=== PATIENT | male | born 1990 | race Caucasian/White ===

== ENCOUNTER 2022-08-23 11:23 | Emergency (ER) | payer OTHER ==
--- NOTE | 2022-08-23 12:47 | RAD REPORT ---
EXAM DESCRIPTION: US - Extremity Venous Uni Ltd - 08/23/2022 12:26 pm CLINICAL HISTORY: Swelling COMPARISON: None. TECHNIQUE: Real-time sonographic evaluation of the right lower extremity deep venous system was perf ormed. FINDINGS: Normal compressibility, flow augmentation, phasic flow and spontaneous flow is identified in the right lower extremity deep venous system. No intraluminal filling defects seen. IMPRESSION: No DVT in the right lower extremity.
[2022-08-23] MEDS ORDERED: HYDROCODONE/APAP 5/325 MG TAB ONE (13:44)
--- NOTE | 2022-08-23 14:12 | RAD REPORT ---
EXAM DESCRIPTION: CT - Chest For Pe Angio - 08/23/2022 2:00 pm CLINICAL HISTORY: edema, sob COMPARISON: No comparisons TECHNIQUE: Dynamically enhanced axial 3 mm thick images of the chest were obtained during administra tion of <100> mL Isovue 370 IV contrast. Coronal and oblique reconstruction images were generated and reviewed. Exam utilizes a protocol for optimal evaluation of pulmonary arterial tree. Maximum intensity projections 3D imaging was utilized All CT scans are performed using dose optimization technique as appropriate and may include automated exposure control or mA/KV adjustment according to patient size. FINDINGS: Chest Wall: No suspicious thyroid nodules or pathologic lymphadenopathy. Lungs: No acute abnormality. Pleura: No significant effusions or pneumothorax. Mediastinum/daina: No pathologic lymphadenopathy. Pulmonary arteries/Aorta: No filling defect identified. No aortic aneurysm. Heart: No significant pericardial effusion. Normal heart size. Upper abdomen: No acute abnormality.Hepatic steatosis. Bones: No acute abnormality. IMPRESSION: Negative for pulmonary embolism. No acute findings within the chest.
--- NOTE | 2022-08-23 14:15 | RAD REPORT ---
EXAM DESCRIPTION: CTAbdomen Pelvis W Contrast - 08/23/2022 2:00 pm CLINICAL HISTORY: r/o mass as cause of venous obstruction COMPARISON: No comparisons TECHNIQUE: CT of the abdomen and pelvis was performed. All CT scans are performed using dose optimization technique as appropriate and may include automated exposure control or mA/KV adjustment according to patient size. FINDINGS: Lower chest: No acute abnormality. Liver: No acute abnormality or suspicious lesions. Hepatic steatosis . Biliary: No biliary ductal dilatation. Stomach: No significant focal abnormality. Duodenum: No significant focal abnormality. Pancreas: No significant abnormality. Spleen: No significant abnormality. Adrenal: No suspicious lesions. Kidney/ureter: No hydronephrosis. No renal calculi. Retroperitoneum: No retroperitoneal adenopathy. Vascular: No aneurysm. Bowel: No significant focal abnormality. Normal appendix. Peritoneum: No ascites or free air. Bladder: Grossly unremarkable. Reproductive: No adnexal masses. Bones: No acute fracture. Moderate disc height loss at L5-S1. Other: n/a IMPRESSION: No acute intra-abdominal or pelvic finding. Hepatic steatosis.
[2022-08-23] MEDS ORDERED: KETOROLAC 30 MG/ML INJ ONE (14:34)
--- NOTE | 2022-08-23 14:39 | EDPHYS ---
Physician Documentation [facility] Name: Lico Antonio II Age: 32 yrs Sex: Male : 1990 Arrival Date: 08/23/2022 Time: 11:25 Bed 20 Private MD: ED Physician Fidel Palomino HPI: 08/23 12:06 This 32 yrs old Male presents to ER via Ambulatory with complaints of Leg Pain, Leg snw Swelling. 12:06 The patient presents with pain, that is acute, swelling. The complaints affect the snw right knee, right cruz, anterior aspect of right ankle and dorsum of right foot. Onset: The symptoms/episode began/occurred acutely. Associated signs and symptoms: Pertinent positives: swelling. The patient has not recently seen a physician. rec'd covid vaccines. Historical: - Allergies: 11:45 No Known Allergies; ss - Home Meds: 11:45 None [Active]; ss - PMHx: 11:45 None; ss - PSHx: 11:45 dental repair; ss - Immunization history:: Client reports receiving the 2nd dose of the Covid vaccine. - Social history:: Smoking status: Patient reports the use of cigarette tobacco products, denies chronic smoking, but will smoke occasionally. ROS: 12:05 Constitutional: Negative for fever, chills, and weight loss, Eyes: Negative for injury, snw pain, redness, and discharge, ENT: Negative for injury, pain, and discharge, Neck: Negative for injury, pain, and swelling, Cardiovascular: Negative for chest pain, palpitations, and edema, Respiratory: Negative for shortness of breath, cough, wheezing, and pleuritic chest pain, Abdomen/GI: Negative for abdominal pain, nausea, vomiting, diarrhea, and constipation, Back: Negative for injury and pain, : Negative for injury, bleeding, discharge, and swelling, Skin: Negative for injury, rash, and discoloration, Neuro: Negative for headache, weakness, numbness, tingling, and seizure, Psych: Negative for depression, anxiety, suicide ideation, homicidal ideation, and hallucinations. 12:05 MS/extremity: Positive for pain, swelling, of the right knee, right cruz, anterior aspect of right ankle and dorsum of right foot. Exam: 12:01 Constitutional: This is a well developed, well nourished patient who is awake, alert, snw and in no acute distress. Head/Face: Normocephalic, atraumatic. Eyes: Pupils equal round and reactive to light, extra-ocular motions intact. Lids and lashes normal. Conjunctiva and sclera are non-icteric and not injected. Cornea within normal limits. Periorbital areas with no swelling, redness, or edema. ENT: Nares patent. No nasal discharge, no septal abnormalities noted. Tympanic membranes are normal and external auditory canals are clear. Oropharynx with no redness, swelling, or masses, exudates, or evidence of obstruction, uvula midline. Mucous membranes moist. Neck: Trachea midline, no thyromegaly or masses palpated, and no cervical lymphadenopathy. Supple, full range of motion without nuchal rigidity, or vertebral point tenderness. No Meningismus. Chest/axilla: Normal chest wall appearance and motion. Nontender with no deformity. No lesions are appreciated. Cardiovascular: Regular rate and rhythm with a normal S1 and S2. No gallops, murmurs, or rubs. Normal PMI, no JVD. No pulse deficits. Respiratory: Lungs have equal breath sounds bilaterally, clear to auscultation and percussion. No rales, rhonchi or wheezes noted. No increased work of breathing, no retractions or nasal flaring. Abdomen/GI: Soft, non-tender, with normal bowel sounds. No distension or tympany. No guarding or rebound. No evidence of tenderness throughout. Back: No spinal tenderness. No costovertebral tenderness. Full range of motion. Skin: Warm, dry with normal turgor. Normal color with no rashes, no lesions, and no evidence of cellulitis. Neuro: Awake and alert, GCS 15, oriented to person, place, time, and situation. Cranial nerves II-XII grossly intact. Motor strength 5/5 in all extremities. Sensory grossly intact. Cerebellar exam normal. Normal gait. Psych: Awake, alert, with orientation to person, place and time. Behavior, mood, and affect are within normal limits. 12:01 Musculoskeletal/extremity: Extremities: grossly normal except: noted in the right knee, right cruz, anterior aspect of right ankle and dorsum of right foot: swelling, tenderness, venous cord, ROM: no acute changes, Circulation is intact in all extremities. increased pain over the past two days DVT Exam: swelling, tenderness, positive Homans' sign noted on exam. Vital Signs: 11:41 Pulse 85; Resp 14; Temp 98.1(TE); Pulse Ox 99% on R/A; Weight 104.33 kg; Height 5 ft. 8 ss in. (172.72 cm); Pain 8/10; 11:45 BP 145 / 95; ss 12:31 BP 149 / 89; Pulse 78; Resp 20; Pulse Ox 96% on R/A; Pain 8/10; mb9 14:17 BP 119 / 87; Pulse 84; Resp 18; Pulse Ox 98% on R/A; Pain 4/10; mb9 14:41 BP 127 / 90; Pulse 84; Resp 16; Pulse Ox 97% ; mb9 11:41 Body Mass Index 34.97 (104.33 kg, 172.72 cm) ss MDM: 11:51 Patient medically screened. snw 14:41 Differential diagnosis: DVT, gout, obstructive lymph. Data reviewed: vital signs, snw nurses notes. Management of patient was discussed with the following: Dr. Palomino, family, pt and family voice understanding of tx plan and f/u. I considered the following discharge prescriptions or medication management in the emergency department Medications were administered in the Emergency Department. See MAR. Counseling: I had a detailed discussion with the patient and/or guardian regarding: the historical points, exam findings, and any diagnostic results supporting the discharge/admit diagnosis, the presence of at least one elevated blood pressure reading (>120/80) during this emergency department visit, radiology results, the need for outpatient follow up, for definitive care, to return to the emergency department if symptoms worsen or persist or if there are any questions or concerns that arise at home. Special discussion: I have referred the patient to see his PCP for further evaluation of high blood pressure. Based on the history and exam findings, there is no indication for further emergent testing or inpatient evaluation. I discussed with the patient/guardian the need to see the primary care provider for further evaluation of the symptoms. 08/23 11:50 Order name: US Extremity Venous Unilateral Ltd; Complete Time: 12:49 snw 08/23 12:31 Order name: CT Chest For PE Angio; Complete Time: 14:19 snw 08/23 12:31 Order name: CT Abd/Pelvis - IV Contrast Only; Complete Time: 14:19 snw 08/23 12:34 Order name: IV Saline Lock; Complete Time: 12:47 mb9 Administered Medications: 13:41 Drug: [place] (HYDROcodone-acetaminophen) 5 mg-325 mg 1 tabs Route: PO; mb9 14:41 Follow up: Response: No adverse reaction mb9 14:41 Drug: Ketorolac 30 mg Route: IM; Site: right deltoid; mb9 14:41 Follow up: Response: No adverse reaction mb9 Disposition Summary: 08/23/22 14:38 Discharge Ordered Location: Home snw Condition: Stable snw Diagnosis - Varicose veins of right lower extremities with pain snw Followup: snw - With: Emergency Department - When: As needed - Reason: Worsening of condition Followup: snw - With: Private Physician - When: 1 week - Reason: Recheck today's complaints, Continuance of care, Re-evaluation by your physician Discharge Instructions: - Discharge Summary Sheet snw - Varicose Veins snw - Stasis Dermatitis snw - DASH Eating Plan snw - Rehydration, Adult snw - How to Use Compression Stockings snw Forms: - Medication Reconciliation Form snw - Thank You Letter snw - Antibiotic Education snw - Prescription Opioid Use snw - Work release form snw Signatures: Dispatcher [employer] EDCyndi Page, TIRE SHOP MANAGER-C TIRE SHOP MANAGER-Csnw Corina Mccall, RN Meghan Arzola RN RN mb9 Corrections: (The following items were deleted from the chart) 11:45 11:45 PSHx: None; [facility]
--- NOTE | 2022-08-23 14:39 | ER ---
Nurse's Notes [facility] Name: Lico Antonio II Age: 32 yrs Sex: Male : 1990 Arrival Date: 08/23/2022 Time: 11:25 Bed 20 Private MD: Diagnosis: Varicose veins of right lower extremities with pain Presentation: 08/23 11:42 Chief complaint: Patient states: R lower leg pain and swelling that began 2-3 weeks ss ago. PT reports that swelling seems to go down when he lays down. Coronavirus screen: Client denies travel out of the [place] in the last 14 days. Ebola Screen: Patient denies exposure to infectious person. Patient denies travel to an Ebola-affected area in the 21 days before illness onset. Initial Sepsis Screen: Does the patient meet any 2 criteria? No. Patient's initial sepsis screen is negative. Does the patient have a suspected source of infection? No. Patient's initial sepsis screen is negative. Risk Assessment: Do you want to hurt yourself or someone else? Patient reports no desire to harm self or others. Onset of symptoms was July 2022. 11:42 Method Of Arrival: Ambulatory ss 11:42 Acuity: KRISTOPHER 3 ss Historical: - Allergies: 11:45 No Known Allergies; ss - Home Meds: 11:45 None [Active]; ss - PMHx: 11:45 None; ss - PSHx: 11:45 dental repair; ss - Immunization history:: Client reports receiving the 2nd dose of the Covid vaccine. - Social history:: Smoking status: Patient reports the use of cigarette tobacco products, denies chronic smoking, but will smoke occasionally. Screenin:34 [facility] ED Fall Risk Assessment (Adult) History of falling in the last 3 months, mb9 including since admission No falls in past 3 months (0 pts) Confusion or Disorientation No (0 pts) Intoxicated or Sedated No (0 pts) Impaired Gait No (0 pts) Mobility Assist Device Used No (0 pt) Altered Elimination No (0 pt) Score/Fall Risk Level 0 - 2 = Low Risk Oriented to surroundings, Maintained a safe environment, Educated pt \\T\\ family on fall prevention, incl call for assistance when getting out of bed. Abuse screen: Denies threats or abuse. Nutritional screening: No deficits noted. Tuberculosis screening: No symptoms or risk factors identified. Assessment: 12:31 General: Appears in no apparent distress. comfortable, Behavior is calm, cooperative, mb9 appropriate for age. Pain: Complains of pain in right leg Pain currently is 8 out of 10 on a pain scale. Quality of pain is described as aching, dull, Pain began 2 weeks ago Is intermittent, Aggravated by increased activity, weight bearing. Neuro: Farris Agitation-Sedation Scale (RASS): 0 - Alert and Calm Level of Consciousness is awake, alert, obeys commands, Oriented to person, place, time, situation, Appropriate for age. Cardiovascular: Denies chest pain, Heart tones S1 S2 present Rhythm is regular. Cardiovascular: Pulses are 1+ in right posterior tibial artery, right dorsalis pedis artery, left posterior tibial artery and left dorsalis pedis artery. Respiratory: Reports shortness of breath "when bending over" Airway is patent Respiratory effort is even, unlabored, Respiratory pattern is regular, symmetrical, Breath sounds are clear bilaterally. GI: Abdomen is round non-distended. : No signs and/or symptoms were reported regarding the genitourinary system. EENT: No signs and/or symptoms were reported regarding the EENT system. Derm: Skin is pink, warm \\T\\ dry. Musculoskeletal: Swelling present in right leg. 13:41 Reassessment: pt taken to CT via stretcher. mb9 14:17 Reassessment: Patient and/or family updated on plan of care and expected duration. Pain mb9 level reassessed. Patient is alert, oriented x 3, equal unlabored respirations, skin warm/dry/pink. Patient states feeling better. 14:41 Reassessment: No changes from previously documented assessment. Patient and/or family mb9 updated on plan of care and expected duration. Pain level reassessed. Patient is alert, oriented x 3, equal unlabored respirations, skin warm/dry/pink. Patient states feeling better. Patient states symptoms have improved. Vital Signs: 11:41 Pulse 85; Resp 14; Temp 98.1(TE); Pulse Ox 99% on R/A; Weight 104.33 kg; Height 5 ft. 8 ss in. (172.72 cm); Pain 8/10; 11:45 BP 145 / 95; ss 12:31 BP 149 / 89; Pulse 78; Resp 20; Pulse Ox 96% on R/A; Pain 8/10; mb9 14:17 BP 119 / 87; Pulse 84; Resp 18; Pulse Ox 98% on R/A; Pain 4/10; mb9 14:41 BP 127 / 90; Pulse 84; Resp 16; Pulse Ox 97% ; mb9 11:41 Body Mass Index 34.97 (104.33 kg, 172.72 cm) ED Course: 11:25 Patient arrived in ED. rg4 11:29 Cyndi Barrow FNP-C [facility]. snw 11:29 Fidel Palomino MD is Attending Physician. snw 11:45 Triage completed. ss 11:45 Arm band placed on right wrist. ss 12:20 Meghan Gunn, ELENITA is Primary Nurse. mb9 12:28 US Extremity Venous Unilateral Ltd In Process Unspecified. EDMS 12:34 No provider procedures requiring assistance completed. mb9 12:45 Inserted saline lock: 20 gauge in right antecubital area, using aseptic technique. mb9 14:02 CT Chest For PE Angio In Process Unspecified. EDMS 14:02 CT Abd/Pelvis - IV Contrast Only In Process Unspecified. EDMS 14:42 IV discontinued, intact, bleeding controlled, No redness/swelling at site. Pressure mb9 dressing applied. Administered Medications: 13:41 Drug: [place] (HYDROcodone-acetaminophen) 5 mg-325 mg 1 tabs Route: PO; mb9 14:41 Follow up: Response: No adverse reaction mb9 14:41 Drug: Ketorolac 30 mg Route: IM; Site: right deltoid; mb9 14:41 Follow up: Response: No adverse reaction mb9 Medication: 12:34 VIS not applicable for this client. mb9 Outcome: 14:38 Discharge ordered by . snw 14:42 Discharged to home ambulatory. mb9 14:42 Condition: stable 14:42 Discharge instructions given to patient, Instructed on discharge instructions, follow up and referral plans. Demonstrated understanding of instructions, follow-up care. 14:47 Patient left the ED. mb9 Signatures: Dispatcher [employer] EDMS Cyndi Barrow FNP-C FNP-Csnw Smirch, Shelby, RN RN Monisha Jenkins rg4 Meghan Gunn, RN RN mb9 Corrections: (The following items were deleted from the chart) 11:45 11:45 PSHx: None; [facility] 12:06 11:42 Chief complaint: Patient states: R lower leg pain and swelling that began over a ss week ago. PT reports that swelling seems to go down when he lays down. ss
[2022-08-23 14:57] VITALS: TEMP 98.1
[2022-08-23 15:20] VITALS: BP 127/90; O2SAT 97
== END 2022-08-23 14:47 | disposition home or self-care (01) ==
LOC: ER 11:23
DX: I83.811 Varicose veins of right lower extremity with pain (principal); F17.210 Nicotine dependence, cigarettes, uncomplicated
CPT/HCPCS: 82565; 71275; 74177; 93971; Q9967; 96372; 99284

== ENCOUNTER 2024-02-22 13:15 | Emergency (ER) | payer OTHER ==
--- NOTE | 2024-02-22 13:33 | ER ---
Nurse's Notes [facility] Name: Lico Antonio II Age: 33 yrs Sex: Male : 1990 Arrival Date: 02/22/2024 Time: 13:15 Bed DX4 Private MD: Diagnosis: Dental caries, unspecified-toothache Presentation: 02/21 13:24 Chief complaint: Patient states: he has been having right sided tooth pain for approx ap3 one month. patient states he has been unable to get in to see a dentist for his pain. he currently rates his pain as a 10/10 on the pain scale at this time. Coronavirus screen: At this time, the client does not indicate any symptoms associated with coronavirus-19. Ebola Screen: No symptoms or risks identified at this time. Initial Sepsis Screen: Does the patient meet any 2 criteria? No. Patient's initial sepsis screen is negative. Does the patient have a suspected source of infection? No. Patient's initial sepsis screen is negative. Risk Assessment: Do you want to hurt yourself or someone else? Patient reports no desire to harm self or others. Onset of symptoms is unknown. 13:24 Method Of Arrival: Ambulatory ap3 13:24 Acuity: KRISTOPHER 4 ap3 Triage Assessment: 13:26 General: Appears in no apparent distress. Behavior is calm, cooperative, appropriate ap3 for age. Pain: Complains of pain in right upper and lower teeth Pain currently is 10 out of 10 on a pain scale. Pain began gradually, approx one month ago. EENT: Reports pain in right upper and lower teeth. Neuro: Level of Consciousness is awake, alert, obeys commands, Oriented to person, place, time, situation, Appropriate for age. Cardiovascular: Patient's skin is warm and dry. Respiratory: Airway is patent Respiratory effort is even, unlabored, Respiratory pattern is regular, symmetrical. Historical: - Allergies: 13:26 No Known Allergies; ap3 - Home Meds: 13:26 None [Active]; ap3 - PMHx: 13:26 None; ap3 - PSHx: 13:26 dental repair; ap3 - Immunization history:: Client reports receiving the 2nd dose of the Covid vaccine. - Infectious Disease History:: Denies. - Social history:: Smoking status: Patient reports the use of cigarette tobacco products, denies chronic smoking, but will smoke occasionally. Screenin:27 Abuse screen: Denies threats or abuse. Nutritional screening: No deficits noted. ap3 Tuberculosis screening: No symptoms or risk factors identified. 13:28 [facility] ED Fall Risk Assessment (Adult) History of falling in the last 3 months, ap3 including since admission No falls in past 3 months (0 pts) Confusion or Disorientation No (0 pts) Intoxicated or Sedated No (0 pts) Impaired Gait No (0 pts) Mobility Assist Device Used No (0 pt) Altered Elimination No (0 pt) Score/Fall Risk Level 0 - 2 = Low Risk Oriented to surroundings, Maintained a safe environment, Educated pt \T\ family on fall prevention, incl call for assistance when getting out of bed, Assessed \T\ reinforced patient's understanding of fall precautions, Provided non-skid footwear, Hourly rounding (assess needs \T\ fall precautionary measures) done, Used ambulatory aids as needed (educated on \T\ assisted with), Used gait belt as appropriate. Vital Signs: 13:24 Pulse 74; Resp 17; Temp 98.1; Pulse Ox 99% ; Weight 98.88 kg; Height 5 ft. 7 in. ; Pain ap3 10/10; 13:24 BP 157 / 97; ap3 13:24 Body Mass Index 34.14 (98.88 kg, 170.18 cm) ap3 13:24 Pain Scale: Adult ap3 ED Course: 13:17 Patient arrived in ED. mr 13:19 Edward DarleenKARLA quinones [facility]. kb 13:19 Fidel Palomino MD is Attending Physician. kb 13:26 Triage completed. ap3 13:27 Arm band placed on right wrist. ap3 14:30 Patient has correct armband on for positive identification. ap3 14:30 Provided Education on: medications prior to administration. ap3 14:30 No provider procedures requiring assistance completed. Patient did not have IV access ap3 during this emergency room visit. Administered Medications: 14:30 Drug: Ketorolac IM 30 mg IM once Route: IM; Site: left deltoid; ap3 14:51 Follow up: Response: No adverse reaction ap3 14:30 Drug: Amoxicillin-Clavulanate PO 875 mg PO once Route: PO; ap3 14:51 Follow up: Response: No adverse reaction; Pain is decreased ap3 Medication: 14:31 VIS not applicable for this client. ap3 Outcome: 13:32 Discharge ordered by MD. esparza 14:51 Discharged to home ambulatory, ap3 14:51 Condition: good 14:51 Discharge instructions given to patient, Instructed on discharge instructions, follow up and referral plans. medication usage, Demonstrated understanding of instructions, follow-up care, medications, Prescriptions given X 2, 14:51 Patient left the ED. ap3 Signatures: Darleen Leon, JUSTINA-C JUSTINA-Meghan Valencia, Reg Reg Marly Dias, RN RN ap3
--- NOTE | 2024-02-22 13:33 | EDPHYS ---
Physician Documentation [facility] Name: Lico Antonio II Age: 33 yrs Sex: Male : 1990 Arrival Date: 02/22/2024 Time: 13:15 Bed DX4 Private MD: ED Physician Fidel Palomino HPI: 02/21 13:31 This 33 yrs old Male presents to ER via Ambulatory with complaints of Toothache. kb 13:31 Pt is a 33 year old male who presents for right upper jaw toothache that radiates to kb lower jaw. States it initially started one month ago, went away and came back last week. Denies fever. States he has been having a hard time eating and sleeping due to pain. . Historical: - Allergies: 13:26 No Known Allergies; ap3 - Home Meds: 13:26 None [Active]; ap3 - PMHx: 13:26 None; ap3 - PSHx: 13:26 dental repair; ap3 - Immunization history:: Client reports receiving the 2nd dose of the Covid vaccine. - Infectious Disease History:: Denies. - Social history:: Smoking status: Patient reports the use of cigarette tobacco products, denies chronic smoking, but will smoke occasionally. ROS: 13:30 Constitutional: As per HPI kb Exam: 13:30 Constitutional: This is a well developed, well nourished patient who is awake, alert, kb and in no acute distress. Head/Face: Normocephalic, atraumatic. Cardiovascular: Regular rate Respiratory: Respirations even and unlabored. No increased work of breathing. Talking in full sentences Skin: Warm, dry with normal turgor. Normal color. MS/ Extremity: Pulses equal, no cyanosis. Neurovascular intact. Full, normal range of motion. Neuro: Awake and alert, GCS 15, oriented to person, place, time, and situation. Moves all extremities. Normal gait. 13:30 ENT: Dental exam: dental caries, that is mild, that is moderate, gum swelling, that is mild, pain, that is moderate, specifically in the upper right second molar (#2) and upper right first molar (#3), Vital Signs: 13:24 Pulse 74; Resp 17; Temp 98.1; Pulse Ox 99% ; Weight 98.88 kg; Height 5 ft. 7 in. ; Pain ap3 10/10; 13:24 BP 157 / 97; ap3 13:24 Body Mass Index 34.14 (98.88 kg, 170.18 cm) ap3 13:24 Pain Scale: Adult ap3 MDM: 13:19 Patient medically screened. kb 13:31 Differential diagnosis: dental caries, gingivitis, dental abscess, pericoronitis. Data kb reviewed: vital signs, nurses notes. Test considered but Not performed: CT: ct considered but pt has no facial swelling, afebrile.. Counseling: I had a detailed discussion with the patient and/or guardian regarding the historical points, exam findings, and any diagnostic results supporting the discharge/admit diagnosis, the need for outpatient follow up, a dentist, to return to the emergency department if symptoms worsen or persist or if there are any questions or concerns that arise at home. Administered Medications: 14:30 Drug: Ketorolac IM 30 mg IM once Route: IM; Site: left deltoid; ap3 14:51 Follow up: Response: No adverse reaction ap3 14:30 Drug: Amoxicillin-Clavulanate PO 875 mg PO once Route: PO; ap3 14:51 Follow up: Response: No adverse reaction; Pain is decreased ap3 Disposition Summary: 02/22/24 13:32 Discharge Ordered Notes: Location: Home kb Condition: Stable kb Diagnosis - Dental caries, unspecified - toothache kb Followup: kb - With: Emergency Department - When: As needed - Reason: Worsening of condition Followup: kb - With: Private Physician - When: 2 - 3 days - Reason: Recheck today's complaints, Continuance of care, Re-evaluation by your physician Discharge Instructions: - Discharge Summary Sheet kb - Dental Caries, Adult kb - Dental Pain, [id number] kb - Dental Abscess, [id number] kb Forms: - Medication Reconciliation Form kb - Antibiotic Education kb - Prescription Opioid Use kb - Patient Portal Instructions kb - Leadership Thank You Letter kb Prescriptions: - Augmentin 875-125 mg Oral Tablet - take 1 tablet ORAL route every 12 hours for 10 days; 20 tablet; Refills: 0, kb Product Selection Permitted - Diclofenac Sodium 75 mg Oral tablet, delayed release (enteric coated) - take 1 tablet ORAL route 2 times per day As needed; 30 tablet; Refills: 0, kb Product Selection Permitted Addendum: 02/23/2024 21:29 Co-signature as Attending Physician, Fidel Palomino MD I agree with the assessment and c mark plan of care. Signatures: Darleen Leon, CRATING AND MOVING ESTIMATOR-C CRATING AND MOVING ESTIMATOR-Fidel Ramirez MD MD cha Prokisch, Amanda, RN RN ap3
[2024-02-22] MEDS ORDERED: KETOROLAC 30 MG/ML INJ ONE (14:23)
[2024-02-22] MEDS ORDERED: AMOX/K CLAV 875 MG TAB ONE (14:23)
[2024-02-22 14:56] VITALS: BP 157/97; TEMP 98.1; O2SAT 99
== END 2024-02-22 14:51 | disposition home or self-care (01) ==
LOC: ER 13:15
DX: K02.9 Dental caries, unspecified (principal)
CPT/HCPCS: 96372; 99284